=== PATIENT | male | born 1985 | race Caucasian/White ===

== ENCOUNTER 2018-09-14 09:00 | Emergency (ER) | payer OTHER ==
[2018-09-14] MEDS ORDERED: ceFAZolin 1 GM Vial IM ONE (09:19)
[2018-09-14] MEDS ORDERED: Diphtheria,Pertussis(Acell),Tetanus Vaccine 0.5 ML Syringe IM ONE (09:19)
--- NOTE | 2018-09-14 09:23 | EDM.PDOC ---
ED HPI GENERAL MEDICAL PROBLEM - General Chief Complaint: Laceration Stated Complaint: LACERATION ON FINGER Time Seen by Provider: 09/14/18 09:15 - History of Present Illness INITIAL COMMENTS - FREE TEXT/NARRATIVE: HISTORY AND PHYSICAL: History of present illness: Patient is a 33-year-old white male presents with a concern of acute injury to the second digit of his right hand. Patient sustained an avulsion injury to the distal aspect of the second digit he denies update tetanus he denies other trauma or concern Review of systems: As per history of present illness and below otherwise all systems reviewed and negative. Past medical history: As per history of present illness and as reviewed below otherwise noncontributory. Surgical history: As per history of present illness and as reviewed below otherwise noncontributory. Social history: No reported history of drug or alcohol abuse. Family history: As per history of present illness and as reviewed below otherwise noncontributory. Physical exam: HEENT: Atraumatic, normocephalic, pupils reactive, negative for conjunctival pallor or scleral icterus, mucous membranes moist, throat clear, neck supple, nontender, trachea midline. Lungs: Clear to auscultation, breath sounds equal bilaterally, chest nontender. Heart: S1S2, regular, negative for clicks, rubs, or JVD. Abdomen: Soft, nondistended, nontender. Negative for masses or hepatosplenomegaly. Negative for costovertebral tenderness. Pelvis: Stable nontender. Genitourinary: Deferred. Rectal: Deferred. Extremities: Patient has a avulsion injury involving an area that's approximately 2 x 3 cm distally neurovascular exam CMS is unremarkable there's good hemostasis. Neuro: Awake, alert, oriented. Cranial nerves II through XII unremarkable. Cerebellum unremarkable. Motor and sensory unremarkable throughout. Exam nonfocal. Diagnostics: X-ray right hand Therapeutics: Wound was cleansed and dressed with bacitracin Telfa and tube gauze sterile dressing. Tetanus was updated Ancef 1 g was given IM Impression: #1 avulsion injury second digit right hand Definitive disposition and diagnosis as appropriate pending reevaluation and review of above. Right Finger-Index Pain Score (Numeric/FACES): 2 - Related Data Allergies Allergy/AdvReac Type Severity Reaction Status Date / Time No Known Allergies Allergy Verified 09/14/18 09:15 Home Meds: Home Meds . [No Known Home Meds] 09/14/18 [History] ED ROS GENERAL - Review of Systems Review Of Systems: ROS reveals no pertinent complaints other than HPI. ED EXAM, SKIN/RASH Exam: See Below (See dictation) Course - Vital Signs Last Recorded V/S: Last Vital Signs Temp 36.3 C 09/14/18 09:15 Pulse 75 09/14/18 09:15 Resp 16 09/14/18 09:15 BP 124/77 09/14/18 09:15 Pulse Ox 96 09/14/18 09:15 - Orders/Labs/Meds Orders: Active Orders 24 hr Category Date Time Status Vaccines to be Administered [RC] PER UNIT ROUTINE Care 09/14/18 09:19 Active Meds: Medications Discontinued Medications Generic Name Dose Route Start Last Admin Trade Name Berto PRN Reason Stop Dose Admin Bacitracin 1 dose 09/14/18 09:27 Bacitracin Oint 1 Gm TOP 09/14/18 09:28 ONETIME ONE Cefazolin Sodium 1 gm 09/14/18 09:19 09/14/18 09:35 Ancef IM 09/14/18 09:20 1 gm ONETIME ONE Administration Diphtheria/Tetanus/Acell Pertussis 0.5 ml 09/14/18 09:19 09/14/18 09:36 Adacel IM 09/14/18 09:20 0.5 ml .ONCE ONE Administration Sterile Water 20 ml 09/14/18 09:26 09/14/18 09:36 Sterile Water For Injection INJECT 09/14/18 09:27 20 ml ONETIME ONE Administration Departure - Departure Time of Disposition: 09:21 Disposition: Home, Self-Care 01 Condition: Good Clinical Impression: Avulsion injury - Discharge Information Instructions: Nail Avulsion, Laceration Care, Adult, Utie-ov-Ehbr Referrals: PCP,None [Primary Care Provider] - Forms: ED Department Discharge Additional Instructions: The following information is given to patients seen in the emergency department who are being discharged to home. This information is to outline your options for follow-up care. We provide all patients seen in our emergency department with a follow-up referral. The need for follow-up, as well as the timing and circumstances, are variable depending upon the specifics of your emergency department visit. If you don't have a primary care physician on staff, we will provide you with a referral. We always advise you to contact your personal physician following an emergency department visit to inform them of the circumstance of the visit and for follow-up with them and/or the need for any referrals to a consulting specialist. The emergency department will also refer you to a specialist when appropriate. This referral assures that you have the opportunity for followup care with a specialist. All of these measure are taken in an effort to provide you with optimal care, which includes your followup. Under all circumstances we always encourage you to contact your private physician who remains a resource for coordinating your care. When calling for followup care, please make the office aware that this follow-up is from your recent emergency room visit. If for any reason you are refused follow-up, please contact the [facility] emergency department at and asked to speak to the emergency department charge nurse. [facility] Specialty [facility] - General Surgery Professional Building [address] [place] [address], [address] [place] [address] Follow-up Gen. surgery above call office for appointment Keflex as prescribed elevation as discussed dressing changes twice a day - My Orders Last 24 Hours: My Active Orders 09/14/18 09:19 Vaccines to be Administered [RC] PER UNIT ROUTINE - Assessment/Plan Last 24 Hours: My Active Orders 09/14/18 09:19 Vaccines to be Administered [RC] PER UNIT ROUTINE
[2018-09-14] MEDS ORDERED: Water For Injection, Sterile 20 ML SDV INJECT ONE (09:26)
[2018-09-14] MEDS ORDERED: Bacitracin Oint 1 GM U/D Packet TOP ONE (09:27)
--- NOTE | 2018-09-14 09:39 | CR ---
EXAMINATION: Right hand HISTORY: Compression injury COMPARISON: None TECHNIQUE: 2 views FINDINGS/IMPRESSION: There is a partial soft tissue amputation of the distal tip of the second digit, the underlying osseous structures appear preserved. Otherwise no acute osseous abnormality or fracture. Tiny dense foreign body adjacent to the proximal first phalanx.
--- NOTE | 2018-09-14 13:49 | PCM.SN ---
- Free Text/Narrative Note: pt seen, chart reviewed; R index finger tip trauma amputated; dw hand surgeon Dr. West/Eric Michelle; put on abx, drsg up wound, have pt seen Dr. West in the office tomorrow morning; plan stefani Ambrosio and nursing staff; [id number]
--- NOTE | 2018-09-14 14:31 | CONS ---
DATE OF CONSULTATION: 09/14/2018 DATE OF : 1985 PRIMARY CARE PHYSICIAN: None PCP A consult from Dr. Ambrosio. CONCERNING QUESTION: Right index finger injury. HISTORY OF PRESENT ILLNESS: The patient is a 33-year-old gentleman and has on-the-job injury/trauma to the right index finger. The patient remarked that some sharp, heavy instrument fell on the finger. Basically, it is like a sharp cutoff at the distal tip of the right index finger. Seen in the emergency room, and surgery was consulted for the injury. The patient denied loss of consciousness. Denied any other injury on the body. Complained about the right index finger. The pain on a pain scale is 2/10. PAST MEDICAL HISTORY: Significant for no diabetes, TN, CVA, or hypertension. PAST SURGICAL HISTORY: None. ALLERGIES: Please refer to nursing notes for details. MEDICATIONS: Please refer to nursing notes for details. REVIEW OF SYSTEMS: Same as History of Present Illness. FAMILY HISTORY: Noncontributory. PHYSICAL EXAMINATION: GENERAL: A very pleasant gentleman, even smiled to the doctor, in no acute distress. HEENT: Normocephalic and atraumatic. Sclerae anicteric. LUNGS: Clear to auscultation. ABDOMEN: Soft and nondistended. No pulsating tender midline abdominal structure. EXTREMITIES: On examination of the right index finger, there is a sharp cutoff at the finger tip on the right index finger, and there is a small hole over there, which is black. Cannot tell whether the bone is exposed on examination, and there is very little swelling and almost as if a surgical amputation of the distal tip. The DIP and PIP are intact. The patient is able to move it, and there is no swelling observed. The hand is totally fine. Grossly likes fine. No hand injury. IMPRESSION: Right index finger tip amputation. We will go and get an x-ray. Depends on whether there is any open fracture or bone involvement, and we will devise a treatment plan after x-ray. ADDENDUM: X-ray has been done, and from the x-ray, looked like the bone is intact, and on radiology reading, bone is intact, and the soft tissue amputation plane looked like it is already past the tip of the bone and suggests bone is exposed, and the patient would benefit from seeing a hand surgeon in a timely manner to discuss how to salvage or manage the wound as this is the right index finger. After discussion with hand surgeon, Dr. West, of [facility], Dr. West advised to put the patient on antibiotic, dress up the wound, and have the patient seen by Dr. West in the office tomorrow. Plan has been discussed with nursing staff, and we will communicate that to the patient. Also, plan has been discussed with Dr. Ambrosio. As always, thank you for the kind referral. RADHA DAMON /[id number]
== END 2018-09-14 10:48 | disposition home or self-care (01) ==
LOC: MW.ED 09:00
DX: S69.81XA Other specified injuries of right wrist, hand and finger(s), initial encounter (principal); Z23 Encounter for immunization; X58.XXXA Exposure to other specified factors, initial encounter
CPT/HCPCS: 73120; 90471; 90715; 96372; 99283; J0690